=== PATIENT | female | born 1980 | race American Indian/Alaskan Native ===

== ENCOUNTER 2020-10-03 07:19 | Observation (INO) | payer OTHER ==
--- NOTE | 2020-10-03 08:18 | Emergency Department Report ---
HPI - General Chief Complaint: Neuro Symptoms/Deficit Time Seen by Provider: 10/03/20 08:04 - HPI HPI: This is a 40-year-old -[place] female presents to the emergency department with a complaint of a 3-day history of progressively worsening right- sided extremity pain and weakness that she says is coming from her neck. Now the patient says that there is also some numbness in the right arm. She denies any headache, vision change, slurred speech. However, the symptoms of gotten bad enough to where the patient says that she is having difficulty ambulating. When she moves the right arm or right leg, she has increased pain in the neck. She has a past medical history of diabetes. She has been taking ibuprofen for symptoms without any relief. She denies any tobacco or illicit drug use. No current PCP. No recent travel or sick contacts at home. ED Past Medical Hx - Past Medical History Previous Medical History?: Yes Hx Diabetes: Yes - Surgical History Past Surgical History?: No - Social History Smoking Status: Never Smoker Substance Use Type: None - Medications Home Medications: Home Medications Medication Instructions Recorded Confirmed Last Taken Type traMADoL [Ultram 50 MG tab] 50 mg PO Q6HR PRN #20 tablet 02/28/15 10/03/20 Unknown Rx Acetaminophen/Codeine [Tylenol 1 tab PO Q6H PRN #12 tab 09/22/19 10/03/20 Unknown Rx /Codeine # 3 tab] ED Review of Systems ROS: Stated complaint: RT SIDE WEAKNESS/NUMB Other details as noted in HPI Comment: All other systems reviewed and negative Constitutional: denies: chills, fever Eyes: denies: eye pain, vision change ENT: denies: ear pain, throat pain Respiratory: denies: cough, shortness of breath Cardiovascular: denies: chest pain, palpitations Gastrointestinal: denies: abdominal pain, vomiting Genitourinary: denies: dysuria, discharge Musculoskeletal: arthralgia, myalgia, other (Neck pain). denies: back pain, joint swelling Skin: denies: rash Neurological: weakness, numbness. denies: headache Physical Exam - Physical Exam Vital Signs: Vital Signs 10/03/20 07:32 Temperature 98.2 F Pulse Rate 80 Respiratory 18 Rate Blood Pressure 112/76 O2 Sat by Pulse 99 Oximetry Physical Exam: GENERAL: The patient is well-developed well-nourished. HENT: Normocephalic. Atraumatic. Patient has moist mucous membranes. EYES: Extraocular motions are intact. Pupils equal reactive to light bilaterally. NECK: Supple. Trachea is midline. CHEST/LUNGS: Clear to auscultation. There is no respiratory distress noted. HEART/CARDIOVASCULAR: Regular. There is no tachycardia. There is no murmur. ABDOMEN: Abdomen is soft, nontender. Patient has normal bowel sounds. SKIN: Skin is warm and dry. NEURO: The patient is awake, alert, and oriented. The patient is cooperative. Decreased sensation to the right upper extremity when compared to the left. Cranial nerves II through XII grossly intact. No facial asymmetry. There is a mild right upper extremity drift. Normal speech. MUSCULOSKELETAL: There is no tenderness to palpation along the affected right upper and lower extremities. However there is increased pain with both passive and active movement of the right upper and lower extremities. Radial pulse +2/4 and capillary refill less than 2 seconds to the bilateral upper extremities. ED Course Vital Signs 10/03/20 07:32 Temperature 98.2 F Pulse Rate 80 Respiratory 18 Rate Blood Pressure 112/76 O2 Sat by Pulse 99 Oximetry ED Medical Decision Making - Lab Data Result diagrams: 10/03/20 09:13 10/03/20 09:13 Lab Results 10/03/20 10/03/20 10/03/20 Range/Units 07:32 09:13 09:13 WBC 7.0 (4.5-11.0) K/mm3 RBC 4.21 (3.65-5.03) M/mm3 Hgb 11.7 (10.1-14.3) gm/dl Hct 36.6 (30.3-42.9) % MCV 87 (79-97) fl MCH 28 (28-32) pg MCHC 32 (30-34) % RDW 14.7 (13.2-15.2) % Plt Count 361 (140-440) K/mm3 Lymph % (Auto) 26.8 (13.4-35.0) % Stokes % (Auto) 4.7 (0.0-7.3) % Eos % (Auto) 1.8 (0.0-4.3) % Baso % (Auto) 0.7 (0.0-1.8) % Lymph # (Auto) 1.9 (1.2-5.4) K/mm3 Stokes # (Auto) 0.3 (0.0-0.8) K/mm3 Eos # (Auto) 0.1 (0.0-0.4) K/mm3 Baso # (Auto) 0.1 (0.0-0.1) K/mm3 Seg Neutrophils % 66.0 (40.0-70.0) % Seg Neutrophils # 4.6 (1.8-7.7) K/mm3 Sodium 137 (137-145) mmol/L Potassium 4.0 (3.6-5.0) mmol/L Chloride 103.6 (98-107) mmol/L Carbon Dioxide 24 (22-30) mmol/L Anion Gap 13 mmol/L BUN 9 (7-17) mg/dL Creatinine 0.7 (0.6-1.2) mg/dL Estimated GFR > 60 ml/min BUN/Creatinine Ratio 13 % Glucose 111 H (65-100) mg/dL POC Glucose 144 H (70-105) mg/dL Calcium 9.1 (8.4-10.2) mg/dL Total Bilirubin 0.70 (0.1-1.2) mg/dL AST 14 (5-40) units/L ALT 13 (7-56) units/L Alkaline Phosphatase 54 (35-129) units/L Total Creatine Kinase 270 H (30-135) units/L Total Protein 7.1 (6.3-8.2) g/dL Albumin 4.2 (3.9-5) g/dL Albumin/Globulin Ratio 1.4 % TSH (0.270-4.200) mlU/mL HCG, Qual (Negative) 10/03/20 10/03/20 Range/Units 09:13 09:13 WBC (4.5-11.0) K/mm3 RBC (3.65-5.03) M/mm3 Hgb (10.1-14.3) gm/dl Hct (30.3-42.9) % MCV (79-97) fl MCH (28-32) pg MCHC (30-34) % RDW (13.2-15.2) % Plt Count (140-440) K/mm3 Lymph % (Auto) (13.4-35.0) % Stokes % (Auto) (0.0-7.3) % Eos % (Auto) (0.0-4.3) % Baso % (Auto) (0.0-1.8) % Lymph # (Auto) (1.2-5.4) K/mm3 Stokes # (Auto) (0.0-0.8) K/mm3 Eos # (Auto) (0.0-0.4) K/mm3 Baso # (Auto) (0.0-0.1) K/mm3 Seg Neutrophils % (40.0-70.0) % Seg Neutrophils # (1.8-7.7) K/mm3 Sodium (137-145) mmol/L Potassium (3.6-5.0) mmol/L Chloride (98-107) mmol/L Carbon Dioxide (22-30) mmol/L Anion Gap mmol/L BUN (7-17) mg/dL Creatinine (0.6-1.2) mg/dL Estimated GFR ml/min BUN/Creatinine Ratio % Glucose (65-100) mg/dL POC Glucose (70-105) mg/dL Calcium (8.4-10.2) mg/dL Total Bilirubin (0.1-1.2) mg/dL AST (5-40) units/L ALT (7-56) units/L Alkaline Phosphatase (35-129) units/L Total Creatine Kinase (30-135) units/L Total Protein (6.3-8.2) g/dL Albumin (3.9-5) g/dL Albumin/Globulin Ratio % TSH 1.320 (0.270-4.200) mlU/mL HCG, Qual Negative (Negative) - Radiology Data Radiology results: report reviewed CT head/brain wo con INDICATION / CLINICAL INFORMATION: 40 years Female; Right sided weakness. TECHNIQUE: Routine CT head without contrast. All CT scans at this location are performed using CT dose reduction for ALARA by means of automated exposure control. COMPARISON: None. FINDINGS: The brain parenchyma appears to demonstrate appropriate attenuation. The ventricular system is within normal limits in size and configuration. There is no clear CT evidence of acute intracranial hemorrhage or significant mass effect. ORBITS: No significant abnormality of visualized orbits. SINUSES / MASTOIDS: No significant abnormality in the visualized paranasal sinuses or mastoid air cells. CRANIOCERVICAL JUNCTION: No significant abnormality. ADDITIONAL FINDINGS: None. IMPRESSION: 1. There is no CT evidence of acute intracranial process. - Medical Decision Making This patient presents to the emergency department with a complaint of a 3-day history of progressively worsening right arm and leg pain and weakness, as well as some numbness also seen in the right arm. CT of the head without contrast does not show any hemorrhage, large vessel occlusion, or any other acute process. Labs have been unremarkable including CBC, metabolic panel, normal CK level, normal thyroid function. On examination the patient has no reproducible tenderness to palpation of the extremities, but does have increased pain with both passive and active movement of the extremities that she says she feels worst in the neck. Cranial nerves II through XII grossly intact. No facial asymmetry. There is a mild right upper extremity drift. I got an NIH stroke scale of 2 for this patient. However, last known well time was at least 3 days ago, which puts her outside of any window for TPA or thrombectomy, if the symptoms are evening secondary to a CVA. The patient was seen by the telemedicine neurologist and her differential includes demyelinating disease, MS, transverse myelitis, cervical radiculopathy, brachial plexus pathology, as well as atypical CVA. Recommendation is for patient to be admitted for MRI imaging and further evaluation. Patient has been accepted for admission by the hospitalist, Dr. Vieyra. Critical Care Time: No Critical care attestation.: If time is entered above; I have spent that time in minutes in the direct care o f this critically ill patient, excluding procedure time. ED Disposition Clinical Impression: Right sided weakness, Gait instability, Cervical radicular pain, Right arm numbness Obesity Qualifiers: Obesity type: unspecified obesity type Body mass index: unspecified BMI Disposition: OP ADMIT IP TO THIS HOSP Is pt being admited?: Yes Condition: Fair Time of Disposition: 13:59 - Level of Consciousness 1a. Level of Consciousness: alert/keenly responsive - LOC Questions 1b. LOC Questions: answers both correctly - LOC Command 1c. LOC Commands: performs tasks correctly - Best Gaze 2. Best Gaze: normal - Visual 3. Visual: no visual loss - Facial Palsy 4. Facial Palsy: normal symmetrical movement - Motor Arm 5a. Motor Arm Left: no drift 5b. Motor Arm Right: drift - Motor Leg 6a. Motor Leg Left: no drift 6b. Motor Leg Right: no drift - Limb Ataxia 7. Limb Ataxia: absent - Sensory 8. Sensory: mild/moderate sensory loss - Best Language 9. Best Language: no aphasia - Dysarthria 10. Dysarthria: normal - Extinction and Inattention 11. Extinction/Inattention: no abnormality - Scoring Total Score: 2 Stroke Severity: Minor Stroke
[2020-10-03 10:08] LABS: Alanine Aminotransferase 13 units/L (7-56); Albumin 4.2 g/dL (3.9-5); Blood Urea Nitrogen 9 mg/dL (7-17); Calcium 9.1 mg/dL (8.4-10.2); Hemolysis Index 3
[2020-10-03 10:09] LABS: BUN/Creatinine Ratio 13
[2020-10-03 10:21] LABS: Basophils # (Auto) 0.1 K/mm3 (0.0-0.1); Basophils % (Auto) 0.7 % (0.0-1.8); Eosinophils # (Auto) 0.1 K/mm3 (0.0-0.4); Eosinophils % (Auto) 1.8 % (0.0-4.3); Hematocrit 36.6 % (30.3-42.9); Hemoglobin 11.7 gm/dl (10.1-14.3); Lymphocytes # (Auto) 1.9 K/mm3 (1.2-5.4); Lymphocytes % (Auto) 26.8 % (13.4-35.0); Mean Corpuscular HGB Conc 32 % (30-34); Mean Corpuscular Volume 87 fl (79-97); Monocytes # (Auto) 0.3 K/mm3 (0.0-0.8); Monocytes % (Auto) 4.7 % (0.0-7.3); Platelet Count 361 K/mm3 (140-440); Red Blood Count 4.21 M/mm3 (3.65-5.03); Red Cell Distribution Width 14.7 % (13.2-15.2)
[2020-10-03] MEDS ORDERED: ONDANSETRON 4 MG/2 ML INJ IV ONE (10:21)
[2020-10-03] MEDS ORDERED: MORPHINE 4 MG/1 ML INJ IV ONE (10:21)
--- NOTE | 2020-10-03 10:59 | Cat Scan Report ---
CT head/brain wo con INDICATION / CLINICAL INFORMATION: 40 years Female; Right sided weakness. TECHNIQUE: Routine CT head without contrast. All CT scans at this location are performed using CT dos e reduction for ALARA by means of automated exposure control. COMPARISON: None. FINDINGS: The brain parenchyma appears to demonstrate appropriate attenuation. The ventricular system is within normal limits in size and configuration. There is no clear CT evidence of acute intracranial hemorrh age or significant mass effect. ORBITS: No significant abnormality of visualized orbits. SINUSES / MASTOIDS: No significant abnormality in the visualized paranasal sinuses or mastoid air reese ls. CRANIOCERVICAL JUNCTION: No significant abnormality. ADDITIONAL FINDINGS: None. IMPRESSION: 1. There is no CT evidence of acute intracranial process. Signer Name: Álvaro Bear MD Signed: 10/03/2020 10:55 AM Workstation Name: [id number]
--- NOTE | 2020-10-03 11:18 | Consultation ---
Medications and Allergies Allergies Allergy/AdvReac Type Severity Reaction Status Date / Time No Known Allergies Allergy Verified 02/28/15 17:10 Home Medications Medication Instructions Recorded Confirmed Last Taken Type traMADoL [Ultram 50 MG tab] 50 mg PO Q6HR PRN #20 tablet 02/28/15 10/03/20 Unk nown Rx Acetaminophen/Codeine [Tylenol 1 tab PO Q6H PRN #12 tab 09/22/19 10/03/20 Unknown Rx /Codeine # 3 tab] Physical Examination - Vital Signs Vital Signs: Vital Signs Temp Pulse Resp BP Pulse Ox 98.2 F 80 18 112/76 99 10/03/20 07:32 10/03/20 07:32 10/03/20 07:32 10/03/20 07:32 10/03/20 07:32 Results - Laboratory Findings CBC and BMP: 10/03/20 09:13 10/03/20 09:13 Abnormal Lab Findings: Abnormal Labs 10/03/20 10/03/20 07:32 09:13 Glucose 111 H POC Glucose 144 H Total Creatine Kinase 270 H Assessment and Plan [facility] Consult Note # Demographics Consult Type: General Neurology Patient Location: Emergency Room First Name: Radha Last Name: Rip Date of : 1980 Age: 40 Gender: Female Time of Initial Page (Eastern Time): 10/03/2020, 10:33 Time of Return Call (Eastern Time): 10/03/2020, 10:33 # HPI History: 40 yo woman with 3 days of progressive right-sided pain and weakness. Pain is primarily in her right arm which she describes as a throbbing. She is also having numbness and weakness of tghe right arm. # Exam Vitals: vital signs reviewed SBP: 131 DBP: 75 Mental Status: awake Language: normal speech Cranial Nerves: extra ocular movements intact Motor: Right arm and leg weakness, difficulty lifting off bed Sensory: Decreased sensation to light touch in right Additional Neurologic Exam: Exam limite by lack of patient participation # PMH-FH-SH Past Medical History: Diabetes Social History: non-smoker non-drinker Medications: Metformin Allergies: NKDA # Assessment Impression: Progressive right-sided numbness and weakness most prominent in the right arm Differenital inludes demyelinating disease, stroke, transverse myelitis, other, brachial plexitis, cervical radiculopathy. Needs further workup.; # Plan Thrombolytic/Intervention: NOT IV Thrombolytic or IA Intervention Thrombolytic Exclusion: > 4.5 hours Imaging: (urgency: STAT): MRI Brain with AND without contrast MRI C spine DVT Prophylaxis: SCD chemical DVT prophylaxis Other: I have discussed my recommendations with the referring provider Additional Recommendations: MRI brain and C-spine (with and withoutl contrast) Further recommendations pending MRI results Disposition: admit # Logistics Telemedicine: Interactive 2 way audio and visual telecommunication technology was utilized during this visit
--- NOTE | 2020-10-03 11:53 | History and Physical Report ---
History of Present Illness Chief complaint: My neck hurts and my right arm gets numb sometimes History of present illness: 40 YO Female with Obesity, DM presents to ED for evaluation. Patient reports "my neck hurts and my right arm gets numb sometimes". Patient states that she has experienced neck pain, right arm weakness over the past 1 month with progressively worsening symptoms over the past 3 days. Patient transported to [facility] via private vehicle for further care and evaluation of the aforementioned symptoms. The patient was seen and evaluated in the emergency department. All lab and imaging studies reviewed. a code stroke was initiated in the emergency department and the patient was initiated on CVA protocol. Patient found to have a neurologic deficit. Patient initiated on stroke protocol. Patient found to have a neurologic deficit that is suspected secondary to CVA as well as cervical radiculopathy. Patient placed in observation status and placed on CVA protocol. Patient also treated with steroid therapy as well as cervical spine x-ray. Patient denies fever, chills, chest pain, palpitation, productive cough, skin rash, recent ill contacts, or known exposure to COVID-19. No prior admission for review. All medication listed at time of admission has been reconciled. Past History Past Medical History: diabetes, other (See HPI) Past Surgical History: No surgical history, Other (Reviewed) Social history: single. denies: smoking, alcohol abuse, prescription drug abuse Family history: diabetes, hypertension Medications and Allergies Allergies Allergy/AdvReac Type Severity Reaction Status Date / Time No Known Allergies Allergy Verified 02/28/15 17:10 Home Medications Medication Instructions Recorded Confirmed Last Taken Type traMADoL [Ultram 50 MG tab] 50 mg PO Q6HR PRN #20 tablet 02/28/15 10/03/20 Unknown Rx Acetaminophen/Codeine [Tylenol 1 tab PO Q6H PRN #12 tab 09/22/19 10/03/20 Unknown Rx /Codeine # 3 tab] Review of Systems Constitutional: no weight loss, no weight gain, no fever, no chills Ears, nose, mouth and throat: no ear pain, no ear discharge, no decreased hearing, no nose pain Breasts: no change in shape Cardiovascular: no chest pain, no palpitations, no rapid/irregular heart beat, no edema, no syncope Respiratory: no cough, no hemoptysis, no shortness of breath, no dyspnea on exertion Gastrointestinal: no abdominal pain, no nausea, no vomiting, no hematemesis Genitourinary Female: no pelvic pain, no flank pain, no dysuria, no urinary frequency, no urgency Rectal: no pain, no incontinence, no bleeding Musculoskeletal: neck pain, shooting arm pain, arm numbness/tingling, no low back pain, no shooting leg pain, no hot joints, no muscle cramps, no atrophy, no frequent falls, no fractures Integumentary: no rash, no pruritis, no redness, no sores, no wounds Neurological: no head injury, no transient paralysis, no weakness, no parathesias, no seizures, no syncope, no tremors Psychiatric: no anxiety, no insomnia, no hypersomnia, no change in appetite, no suicidal ideation, no disorientation Endocrine: no cold intolerance, no heat intolerance, no excessive thirst, no nocturia Hematologic/Lymphatic: no easy bruising, no easy bleeding, no lymphedema Allergic/Immunologic: no allergic rhinitis, no wheezing, no persistent infections Exam - Constitutional Vitals: Temp Pulse Resp BP Pulse Ox 98.7 F 72 18 107/64 100 10/03/20 09:07 10/03/20 09:07 10/03/20 09:07 10/03/20 09:07 10/03/20 09:07 General appearance: Present: mild distress, obese - EENT Eyes: Present: PERRL ENT: hearing intact, clear oral mucosa - Neck Neck: Present: supple, normal ROM - Respiratory Respiratory effort: normal Respiratory: bilateral: CTA - Cardiovascular Heart Sounds: Present: S1 & S2. Absent: rub, click - Extremities Extremities: pulses symmetrical, No edema Peripheral Pulses: within normal limits - Abdominal General gastrointestinal: Present: soft, non-tender, non-distended, normal bowel sounds Female genitourinary: Present: normal - Integumentary Integumentary: Present: clear, warm, dry - Musculoskeletal Musculoskeletal: right sided weakness - Psychiatric Psychiatric: appropriate mood/affect, intact judgment & insight - Neurologic Neurologic: CNII-XII intact, moves all extremities, no gait normal Results - Labs CBC & Chem 7: 10/03/20 09:13 10/03/20 09:13 Labs: Abnormal lab results 10/03/20 10/03/20 Range/Units 07:32 09:13 Glucose 111 H (65-100) mg/dL POC Glucose 144 H (70-105) mg/dL Total Creatine Kinase 270 H (30-135) units/L Assessment and Plan - Patient Problems (1) CVA (cerebral vascular accident) Current Visit: Yes Status: Acute Plan to address problem: CVA protocol: CT head, neuro check, physical therapy consulted, Occupational Therapy consulted, antiplatelet therapy, lipid panel, echocardiogram, carotid Doppler, (2) Obesity Current Visit: Yes Status: Acute Plan to address problem: Balanced diet, increase physical activity discharge, outpatient bariatric surgery follow-up. Outpatient pulmonary follow-up for sleep study. (3) Cervical radicular pain Current Visit: Yes Status: Acute Plan to address problem: Cervical spine x-ray, prednisone therapy, supportive care. Physical therapy consulted. (4) DVT prophylaxis Current Visit: Yes Status: Acute Plan to address problem: SCDs bilateral lower extremities while in bed, patient is ambulatory.
[2020-10-03] MEDS ORDERED: oxyCODONE /ACETAMINOPHEN 5-325MG TAB PO ONE (12:11)
[2020-10-03] MEDS ORDERED: MORPHINE 4 MG/1 ML INJ IV PRN (13:02)
[2020-10-03] MEDS ORDERED: PROMETHAZINE 25 MG RECT SUPP PR PRN (14:00)
[2020-10-03] MEDS ORDERED: traMADol 50 MG TAB PO PRN (14:00)
[2020-10-03] MEDS ORDERED: oxyCODONE /ACETAMINOPHEN 5-325MG TAB PO PRN (14:00)
[2020-10-03] MEDS ORDERED: METOCLOPRAMIDE 10 MG TAB PO PRN (14:00)
[2020-10-03] MEDS ORDERED: ACETAMINOPHEN 325 MG TAB PO PRN (14:00)
[2020-10-03] MEDS ORDERED: MAGNESIUM HYDROXIDE (MOM) ORAL LIQD UDC PO PRN (14:00)
[2020-10-03] MEDS ORDERED: ONDANSETRON 4 MG/2 ML INJ IV PRN (14:00)
[2020-10-03] MEDS ORDERED: ALBUTEROL 2.5 MG/3 ML NEBU IH PRN (14:00)
--- NOTE | 2020-10-03 14:24 | Vascular Lab Report ---
DUPLEX DOPPLER ULTRASOUND CAROTID, BILATERAL INDICATION / CLINICAL INFORMATION: Stroke. COMPARISON: None available. FINDINGS: RIGHT CAROTID: No significant abnormality. - PLAQUE ESTIMATE (%): < 50% - CCA velocity: 89 cm/sec. - ICA peak systolic velocity: 108 cm/sec. - ICA/CCA PSV Ratio: Less than 2. Right Vertebral Artery: Antegrade flow. LEFT CAROTID: No significant abnormality. - PLAQUE ESTIMATE (%): < 50% - CCA velocity: 73 cm/sec. - ICA peak systolic velocity: 101 cm/sec. - ICA/CCA PSV Ratio: Less than 2. Left Vertebral Artery: Antegrade flow. IMPRESSION: 1. Right Internal Carotid Artery: Normal. 2. Left Internal Carotid Artery: Normal. Velocity criteria are extrapolated from diameter data as defined by the Society of Radiologists in Ul trasound Consensus Conference, Radiology 2003; 229;340-346. NO STENOSIS (NORMAL) - Plaque = none; ICA PSV < 125 cm/sec; ICA/CCA PSV Ratio < 2.0 <50% STENOSIS - Plaque < 50%; ICA PSV < 125 cm/sec; ICA/CCA PSV Ratio < 2.0 50-69% STENOSIS - Plaque > 50%; ICA PSV = 125-230 cm/sec; ICA/CCA PSV Ratio = 2.0-4.0 >70% BUT <100% STENOSIS - Plaque > 50%; ICA PSV > 230 cm/sec; ICA/CCA PSV Ratio > 4.0 NEAR OCCLUSION - Plaque = visible lumen; ICA PSV = high/low/none; ICA/CCA PSV Ratio = variable TOTAL OCCLUSION - Plaque = no lumen; ICA PSV = none; ICA/CCA PSV Ratio = N/A Scribed by: Leanna Tolliver RDMS, RVT Scribed: 10/03/2020 1:13 PM I have reviewed the images, agree with this report, and edited this report as needed. Signer Name: Cory Martinez MD Signed: 10/03/2020 2:19 PM Workstation Name: [id number]
[2020-10-03] MEDS: MORPHINE 2 MG/1 ML INJ IV PRN (14:57)
--- NOTE | 2020-10-03 17:30 | XRay Report ---
Cervical spine 3 views Indication: radiculopathy Findings: There is no fracture, subluxation, or other acute acute radiographic abnormality of the cervical spin e. There is slight reversal the normal cervical lordosis. There is anterior osteophyte formation at C 5-6 and C6-7. Prevertebral soft tissues are unremarkable. The disc space heights are maintained. Signer Name: Adilson Quezada MD Signed: 10/03/2020 5:26 PM Workstation Name: [email or web address]
[2020-10-03] MEDS ORDERED: DEXTROSE 50% IN WATER (25GM) 50 ML SYRINGE IV ONE (18:00)
[2020-10-03] MEDS ORDERED: DEXTROSE 50% IN WATER (25GM) 50 ML SYRINGE IV PRN (22:54)
[2020-10-04] MEDS ORDERED: DEXTROSE 50% IN WATER (25GM) 50 ML SYRINGE IV PRN (00:48)
[2020-10-04] MEDS: MORPHINE 2 MG/1 ML INJ IV PRN ×2 (02:36→08:17)
[2020-10-04] MEDS ORDERED: ASPIRIN 325 MG TAB PO SCH (10:00)
[2020-10-04] MEDS ORDERED: predniSONE 20 MG TAB PO SCH (10:00)
--- NOTE | 2020-10-04 11:40 | Magnetic Resonance Report ---
MRI BRAIN WITHOUT CONTRAST INDICATION / CLINICAL INFORMATION: cva, RT UPPER EXT. PAIN AND WEAKNESS. TECHNIQUE: Multiplanar, multisequence MR images of the brain were obtained. COMPARISON: Head CT on 10/03/2020 FINDINGS: BRAIN / INTRACRANIAL CONTENTS: No acute ischemia, acute hemorrhage, mass effect, midline shift, or hy drocephalus. No chronic infarct or significant atrophy. No significant demyelinating changes. CRANIOCERVICAL JUNCTION: No significant abnormality. VASCULAR FLOW-VOIDS: No significant abnormality. ORBITS: No significant abnormality of visualized orbits. SINUSES / MASTOIDS: No significant abnormality of visualized sinuses and mastoid air cells. ADDITIONAL FINDINGS: None. IMPRESSION: 1. No findings to explain the patient's symptoms. Signer Name: Chepe Zelaya MD Signed: 10/04/2020 11:36 AM Workstation Name: [id number]
--- NOTE | 2020-10-04 12:04 | Magnetic Resonance Report ---
MR cervical spine wo con INDICATION / CLINICAL INFORMATION: 40 years Female; CVA, RT SIDED WEAKNESS AND PAIN. TECHNIQUE: Multisequence, multiplanar images of the cervical spine were obtained. Mild motion artifact present. COMPARISON: None available. FINDINGS: CRANIOCERVICAL JUNCTION:No significant abnormality. ALIGNMENT: Mild scoliosis of the cervicothoracic region noted. Straightening of cervical spine seen, which may be related patient positioning. VERTEBRAE:Grossly normal marrow signal and vertebral body height for age. VISUALIZED SPINAL CORD: There is suggestion of subtle increased T2 signal on sagittal imaging rightwa rd of midline at the C5-6 level. However, this finding is not confirmed on other sequences and presum ably is artifact. INTERVERTEBRAL DISCS: Mild, multilevel disc desiccation noted. [id number] ANALYSIS: C2-3: Mild disc bulge. Mild foraminal narrowing left from uncinate hypertrophy. C3-4: Mild disc bulge. Moderate foraminal narrowing on the left and [id number] on the right fro m uncinate and/or facet hypertrophy. Findings may affect the left C4 nerve. C4-5: Mild disc bulge. Moderate foraminal narrowing on the left and [id number] on the right fro m uncinate and facet hypertrophy. Findings could affect the left C5 nerve. C5-6: Mild disc bulge. Moderate foraminal narrowing bilaterally from uncinate hypertrophy which may e ncroach upon the C6 nerves. C6-7: Minimal disc bulge. C7-T1: Moderate foraminal narrowing seen on the left from moderate facet hypertrophy which certainly could affect the left C8 nerve. PARASPINAL SOFT TISSUES: ADDITIONAL FINDINGS: None. IMPRESSION: 1. Degenerative changes of the cervical spine as described above. Most marked findings on the right m ay be at C5-6. Please correlate with dermatomal distribution of patient's symptoms, if present. Signer Name: Adan Ibrahim MD, III Signed: 10/04/2020 12:00 PM Workstation Name: [email or web address]
--- NOTE | 2020-10-04 14:29 | Discharge Summary ---
Providers - Providers Date of Admission: 10/03/20 13:02 Date of discharge: 10/04/20 Attending physician: SAMEER YOO 10/03/20 13:04 Occupational Therapy Evaluate and Treat [CONS] Routine Comment: Reason For Exam: Neuro deficits Physical Therapy Evaluation and Treat [CONS] Routine Comment: Reason For Exam: Neuro deficits Speech Therapy Evaluation and Treat [CONS] Routine Reason For Exam: swallow eval Primary care physician: [employer] Hospitalization Condition: Fair Pertinent studies: CT head, carotid Doppler, cervical neck x-ray, MRI brain, C-spine MRI, 2D echocardiogram Hospital course: 40 YO Female with Obesity, DM type 2 presents to ED for evaluation of neck pain and right hand numbness and weakness over the past 1 month with progressively worsening symptoms over the past 3 days. The patient was seen and evaluated in the emergency department and a code stroke was initiated. Patient was seen by teleneurology and was not treated for TPA . Patient was recommended for admission and to complete stroke work-up. CT head in the ER did not show any acute abnormality. Patient was further evaluated with carotid Doppler, MRI of the brain, 2D echo. MRI of the brain showed no acute process, carotid Doppler showed no significant stenosis, 2D echo had preserved EF. Cervical spine MRI was suggestive for degenerative changes mostly at the c5-6 level. PT OT evaluated the patient and recommended outpatient physical therapy. Patient was then discharged home in stable condition with outpatient follow-up with neurologist in 1 week. Disposition: - TO HOME OR SELFCARE Final Discharge Diagnosis (Prints w/discharge instructions): --Cervical radiculopathy. --Morbid obesity. --DM type 2 on metformin Time spent for discharge: 34 minutes Core Measure Documentation - Palliative Care Palliative Care/ Comfort Measures: Not Applicable - Core Measures Any of the following diagnoses?: none Exam - Physical Exam Narrative exam: GENERAL: well-developed and well-nourished morbidly obese female lying on bed appeared to be in no discomfort. HEENT: Normocephalic. Atraumatic. No conjunctival congestion or icterus. Patient has moist mucous membranes. NECK: Supple. Trachea midline. CHEST/LUNGS: Clear to auscultated bilaterally, breathing nonlabored. No wheezes crackles or rhonchi. HEART/CARDIOVASCULAR: Regular in rate and rhythm. S1 and S2 positive. ABDOMEN: Abdomen is soft, nontender. Patient has normal bowel sounds. SKIN: There is no rash. Warm and dry. NEURO: No focal motor deficit. Follows command. MUSCULOSKELETAL: No joint effusion or tenderness. EXTRIMITY: No edema, no cyanosis or clubbing. PSYCH: Cooperative. - Constitutional Vitals: Temp Pulse Resp BP Pulse Ox 98.3 F 77 20 137/76 98 10/04/20 12:09 10/04/20 12:09 10/04/20 12:09 10/04/20 12:09 10/04/20 12:09 Plan Activity: advance as tolerated Weight Bearing Status: Weight Bear as Tolerated Diet: low fat, low salt Special Instructions: physical therapy (As outpatient) Additional Instructions: Follow-up with neurologist in 1 to 2 weeks Follow up with: PRIMARY CARE, [Primary Care Provider] - 7 Days Prescriptions: Cyclobenzaprine [Flexeril] 10 mg PO TID PRN #14 tablet PRN Reason: Muscle Spasm traMADoL [Ultram 50 MG tab] 50 mg PO Q6H PRN #14 tablet PRN Reason: Pain, Moderate (4-6)
[2020-10-04 16:48] VITALS: BP 137/65
== END 2020-10-04 17:27 | disposition home or self-care (01) ==
LOC: ED 07:19 → 4A 13:02
PROVIDERS: ADMIT Internal Medicine; ATTEND Internal Medicine
DX: I63.9 Cerebral infarction, unspecified (principal); M54.2 Cervicalgia; G45.9 Transient cerebral ischemic attack, unspecified; E66.9 Obesity, unspecified; E11.9 Type 2 diabetes mellitus without complications; M62.81 Muscle weakness (generalized); R26.9 Unspecified abnormalities of gait and mobility; R94.31 Abnormal electrocardiogram [ECG] [EKG]; Z68.37 Body mass index [BMI] 37.0-37.9, adult; Z79.84 Long term (current) use of oral hypoglycemic drugs; Z86.73 Personal history of transient ischemic attack (TIA), and cerebral infarction without residual deficits
CPT/HCPCS: 36415; 70450; 70551; 72040; 72141; 80053; 82550; 82962; 84443; 84703; 85025; 93306; 93880; 96374; 96375; 96376; 97162; 97165; 99284; A9270; G0378; J2270; J2405; J7512